=== PATIENT | female | born 1965 | race Caucasian/White ===

== ENCOUNTER 2016-12-17 12:45 | Emergency (ER) | payer OTHER ==
[~2016-12-17] VITALS: Ht 157.5 cm; Wt 79.2 kg
[2016-12-17 12:50] VITALS: BP 133/81; PULSE 89; RESP 16; TEMP 99; O2SAT 98
[2016-12-17 14:40] VITALS: BP 137/74; PULSE 67; RESP 16; O2SAT 98
[2016-12-17 15:43] VITALS: BP 134/76; PULSE 76; RESP 16; TEMP 98.1; O2SAT 99
--- NOTE | 2016-12-17 15:45 | PD ---
HPI Chief Complaint: Headache Time Seen by Provider: 14:36 Travel History International Travel<30 days: No Contact w/Intl Traveler<30days: No Traveled to known affect area: No History of Present Illness HPI The patient was seen and examined in the presence of the nurse. At no point in time was I and the room without the nurse present. This patient comes in with a host of complaints. She was here a month ago when she had a dog bite to the right wrist. She received tetanus and rabies injections. She has discomfort in that right wrist which radiates up her arm toward the right shoulder and neck. Denies muscle weakness or sensory loss. Did not have head or neck injury. She also complains of having some muscle cramping in her thighs. She complains of having some bright red blood in her stool. She does not have a primary care physician. Symptoms severity is moderate. She admits to feeling anxious about a lot of things including these symptoms. Duration of symptoms is one month. No alleviating factors PFSH Past Medical History Cardiovascular Problems: Yes (htn takes no meds) Diminished Hearing: No Influenza Vaccination: No ?: Not LMP: MENOPAUSAL Menopausal: Yes Tubal Ligation: Yes Social History Alcohol Use: Yes (SOCIALLY) Tobacco Use: No Substance Use: No Allergies-Medications (Allergen,Severity, Reaction): Coded Allergies: No Known Allergies (Unverified , 12/17/16) Reported Meds & Prescriptions Reported Meds & Active Scripts Active No Active Prescriptions or Reported Medications Review of Systems General / Constitutional: No: Fever Eyes: No: Visual changes HENT: Positive: Neck Pain, No: Headaches Cardiovascular: No: Chest Pain or Discomfort Respiratory: No: Shortness of Breath Gastrointestinal: Positive: Hematochezia, No: Abdominal Pain Genitourinary: No: Dysuria Musculoskeletal: Positive: Myalgias, Arthralgias, Limited ROM, Cramping, Pain Skin: No Rash Neurologic: No: Weakness Psychiatric: Positive: Anxiety, No: Depression Endocrine: No: Polydipsia Hematologic/Lymphatic: No: Easy Bruising Physical Exam Narrative GENERAL: Well-nourished, well-developed patient in no apparent distress. SKIN: Warm and dry. HEAD: Atraumatic. Normocephalic. EYES: Pupils equal and round. No scleral icterus. No injection or drainage. ENT: No nasal bleeding or discharge. Mucous membranes pink and moist. NECK: Trachea midline. No JVD. Supple with full range of motion. No meningeal signs. CARDIOVASCULAR: Regular rate and rhythm. No murmur appreciated. RESPIRATORY: No accessory muscle use. Clear to auscultation. Breath sounds equal bilaterally. GASTROINTESTINAL: Abdomen soft, non-tender, nondistended. Hepatic and splenic margins not palpable. MUSCULOSKELETAL: No obvious deformities. No clubbing. No cyanosis. No edema. Right wrist exam shows no swelling or bruising. No tenseness of muscle forearm compartments. Neurovascularly intact right arm. NEUROLOGICAL: Awake and alert. No obvious cranial nerve deficits. Motor grossly within normal limits. Normal speech. PSYCHIATRIC: Appropriate mood and affect; insight and judgment normal. Data Data Last Documented VS Vital Signs Date Time Temp Pulse Resp B/P Pulse Ox O2 Delivery O2 Flow Rate FiO2 12/17/16 14:40 67 16 137/74 98 Room Air 12/17/16 12:50 99.0 Orders Complete Blood Count With Diff (12/17/16 15:36) MDM Medical Decision Making Medical Screen Exam Complete: Yes Emergency Medical Condition: Yes Medical Record Reviewed: Yes Differential Diagnosis Myalgias, flu syndrome, internal hemorrhoid, polyp, anxiety, somatoform disorder Narrative Course I have reviewed the patient's electronic medical record. Reviewed her visit from a month ago when she was seen here for dog bite to the right wrist Patient seems very stable. There are no objective findings on exam and she has normal vital signs. She is several vague and seemingly unrelated complaints. I don't think they've anything to do with her dog bite. Think the next best place for her as a primary care physician evaluation can do a head to toe exam and discuss a lot of these issues with her. I don't feel she required extensive emergency room workup. I had our principal product manager discuss with her and give her tip says to how to obtain follow-up. Even though she had never mentioned lab work to me, she apparently was very upset that she did not get any lab studies done. I ordered a CBC to objectively rule out critical anemia Also recommending GI follow-up to discuss colonoscopy I don't feel this emergently needs to be done in the hospital. I offered her pain medication but she declines Diagnosis Primary Impression: Right upper limb pain Additional Impressions: Rectal bleeding Anxiety Additional Instructions: Follow-up with primary care physician Follow-up with GI physician and discuss your rectal bleeding Med/Other Pt SpecificInfo: Other Scripts No Active Prescriptions or Reported Meds Disposition: 01 DISCHARGE HOME Condition: Stable Herman Winchester MD Dec 17, 2016 15:45
[2016-12-17 15:49] LABS: AUTOMATED NEUTROPHIL # 4.8 TH/MM3 (1.8-7.7); BASOPHIL # 0.1 TH/MM3 (0-0.2); BASOPHIL % 0.9 % (0.0-2.0); EOSINOPHIL # 0.2 TH/MM3 (0-0.4); EOSINOPHIL % 2.7 % (0.0-4.0); HEMO FLAGS DIFF FINAL; LYMPH % 24.3 % (9.0-44.0); LYMPHOCYTE # 1.8 TH/MM3 (1.0-4.8); MEAN CELL VOLUME 85.1 FL (80.0-100.0); MEAN CORPUSCULAR HEMOGLOBIN 29.5 PG (27.0-34.0); MEAN CORPUSCULAR HGB CONC 34.7 % (32.0-36.0); MONO % 7.2 % (0.0-8.0); NEUT % 64.9 % (16.0-70.0); PLATELET COUNT 262 TH/MM3 (150-450); RED BLOOD COUNT 4.59 MIL/MM3 (4.00-5.30); RED CELL DISTRIBUTION WIDTH 10.6 % (11.6-17.2); WHITE BLOOD COUNT 7.4 TH/MM3 (4.0-11.0)
== END 2016-12-17 16:17 | disposition home or self-care (01) ==
LOC: PHED 12:45
DX: M79.601 Pain in right arm (principal); K62.5 Hemorrhage of anus and rectum; F41.9 Anxiety disorder, unspecified
CPT/HCPCS: 85025; 99284

== ENCOUNTER 2017-06-17 18:28 | Emergency (ER) | payer SELFPAY ==
[~2017-06-17] VITALS: Ht 157.5 cm; Wt 83.2 kg
[2017-06-17 18:32] VITALS: BP 143/77; PULSE 76; RESP 16; TEMP 98.2; O2SAT 97
--- NOTE | 2017-06-17 18:42 | PD ---
HPI Chief Complaint: GI Complaint Time Seen by Provider: 18:39 Travel History International Travel<30 days: No Contact w/Intl Traveler<30days: No Traveled to known affect area: No History of Present Illness HPI 51-year-old female with history of no significant past medical issues, presents to the ER today with 1 week history of nausea, intermittent vomiting, diarrhea, and right lower quadrant abdominal pains which she currently rates it a 9 out of 10. She states is getting worse over the past 6 days. She denies any urinary symptoms, vaginal discharge, or other issues. Modifying Factors: None Associated Signs & Symptoms: Nausea, vomiting, diarrhea, right lower quadrant abdominal pain Risk Factors: None PFSH Past Medical History Cardiovascular Problems: Yes (htn takes no meds) Diminished Hearing: No ?: Not Menopausal: Yes Tubal Ligation: Yes Social History Alcohol Use: Yes (SOCIALLY) Tobacco Use: No Substance Use: No Allergies-Medications (Allergen,Severity, Reaction): Coded Allergies: No Known Allergies (Unverified , 06/17/17) Reported Meds & Prescriptions Reported Meds & Active Scripts Active No Active Prescriptions or Reported Medications Review of Systems Except as stated in HPI: all other systems reviewed are Neg Physical Exam Narrative GENERAL: Well-developed middle age white female patient currently mild distress at awake and oriented 3. SKIN: Focused skin assessment warm/dry. HEAD: Atraumatic. Normocephalic. EYES: Pupils equal and round. No scleral icterus. No injection or drainage. ENT: No nasal bleeding or discharge. Mucous membranes pink and moist. NECK: Trachea midline. No JVD. CARDIOVASCULAR: Regular rate and rhythm. No murmur appreciated. RESPIRATORY: No accessory muscle use. Clear to auscultation. Breath sounds equal bilaterally. GASTROINTESTINAL: Abdomen soft, right lower quadrant tenderness without guarding or rebound, nondistended. Hepatic and splenic margins not palpable. MUSCULOSKELETAL: No obvious deformities. No clubbing. No cyanosis. No edema. NEUROLOGICAL: Awake and alert. No obvious cranial nerve deficits. Motor grossly within normal limits. Normal speech. PSYCHIATRIC: Appropriate mood and affect; insight and judgment normal. Data Data Last Documented VS Vital Signs Date Time Temp Pulse Resp B/P Pulse Ox O2 Delivery O2 Flow Rate FiO2 06/17/17 18:50 98 Room Air 06/17/17 18:32 98.2 76 16 143/77 Orders Complete Blood Count With Diff (06/17/17 18:35) Comprehensive Metabolic Panel (06/17/17 18:35) Lipase (06/17/17 18:35) Urinalysis - C+S If Indicated (06/17/17 18:35) Iv Access Insert/Monitor (06/17/17 18:35) Ecg Monitoring (06/17/17 18:35) Oximetry (06/17/17 18:35) Sodium Chloride 0.9% Flush (Ns Flush) (06/17/17 18:45) Sodium Chlor 0.9% 1000 Ml Inj (Ns 1000 M (06/17/17 18:45) Hydromorphone Pf Inj (Dilaudid Pf Inj) (06/17/17 18:45) Ondansetron Inj (Zofran Inj) (06/17/17 18:45) Ct Abd/Pel W Iv Contrast(Rout) (06/17/17 18:39) Labs Laboratory Tests Test 06/17/17 18:50 White Blood Count 8.0 TH/MM3 Red Blood Count 4.38 MIL/MM3 Hemoglobin 13.3 GM/DL Hematocrit 37.9 % Mean Corpuscular Volume 86.6 FL Mean Corpuscular Hemoglobin 30.3 PG Mean Corpuscular Hemoglobin 35.0 % Concent Red Cell Distribution Width 12.1 % Platelet Count 164 TH/MM3 Mean Platelet Volume 10.5 FL Neutrophils (%) (Auto) 60.7 % Lymphocytes (%) (Auto) 29.6 % Monocytes (%) (Auto) 6.7 % Eosinophils (%) (Auto) 2.3 % Basophils (%) (Auto) 0.7 % Neutrophils # (Auto) 4.8 TH/MM3 Lymphocytes # (Auto) 2.4 TH/MM3 Monocytes # (Auto) 0.5 TH/MM3 Eosinophils # (Auto) 0.2 TH/MM3 Basophils # (Auto) 0.1 TH/MM3 CBC Comment DIFF FINAL Differential Comment MDM Medical Decision Making Medical Screen Exam Complete: Yes Emergency Medical Condition: Yes Medical Record Reviewed: Yes Differential Diagnosis Right lower quadrant abdominal pain with nausea, vomiting, diarrhea gastroenteritis versus diverticulitis versus renal colic versus pyelonephritis versus appendicitis versus other acute abdominal processes Narrative Course Lab work, IV fluids, pain medications and Zofran were given in the ER. CAT scan was ordered for further evaluation of pain. Physician Communication Physician Communication Case is signed out to Dr. Rojas at 7 PM pending workup. Disposition based on workup. Diagnosis Primary Impression: Abdominal pain Scripts No Active Prescriptions or Reported Meds Condition: Stable Gabino Salazar MD Jun 17, 2017 18:42
[2017-06-17] MEDS ORDERED: SODIUM CHLOR 0.9% 1000 ML INJ 1,000 ML IV ONE (18:45)
[2017-06-17] MEDS ORDERED: ONDANSETRON HCL 4 MG/2 ML VIAL IV PUSH ONE (18:45)
[2017-06-17] MEDS ORDERED: HYDROmorphone HCL PF 1 MG/ML VIAL IV PUSH ONE (18:45)
[2017-06-17 18:50] VITALS: O2SAT 98
[2017-06-17 18:55] LABS: BLOOD, URINE NEG (NEG); GLUCOSE,URINE NEG (NEG); KETONE, URINE NEG (NEG); NITRITE,URINE NEG (NEG)
[2017-06-17 18:56] LABS: AUTOMATED NEUTROPHIL # 4.8 TH/MM3 (1.8-7.7); BASOPHIL # 0.1 TH/MM3 (0-0.2); BASOPHIL % 0.7 % (0.0-2.0); EOSINOPHIL # 0.2 TH/MM3 (0-0.4); EOSINOPHIL % 2.3 % (0.0-4.0); HEMATOCRIT 37.9 % (35.0-46.0); HEMO FLAGS DIFF FINAL; LYMPH % 29.6 % (9.0-44.0); LYMPHOCYTE # 2.4 TH/MM3 (1.0-4.8); MEAN CELL VOLUME 86.6 FL (80.0-100.0); MEAN CORPUSCULAR HEMOGLOBIN 30.3 PG (27.0-34.0); MONO % 6.7 % (0.0-8.0); NEUT % 60.7 % (16.0-70.0); PLATELET COUNT 164 TH/MM3 (150-450); RED BLOOD COUNT 4.38 MIL/MM3 (4.00-5.30); RED CELL DISTRIBUTION WIDTH 12.1 % (11.6-17.2)
[2017-06-17 19:02] LABS: URINE COLOR YELLOW (YELLW/STRAW)
[2017-06-17 19:04] LABS: CHLORIDE 108 MEQ/L (98-107); POTASSIUM 3.9 MEQ/L (3.5-5.1); RBC, URINE 0-2 /hpf (0-3); SODIUM (NA) 143 MEQ/L (136-145); SQUAMOUS EPITHELIAL CELL URINE > 8 /hpf (0-5); WBC, URINE 0-2 /hpf (0-5)
[2017-06-17 19:05] LABS: COMMENT (UR) CULT NOT INDICATED; CULTURE IF INDICATED CULT NOT INDICATED
[2017-06-17 19:08] LABS: ANION GAP 8 MEQ/L (5-15); BICARBONATE 26.9 MEQ/L (21.0-32.0); BLOOD UREA NITROGEN 24 MG/DL (7-18)
[2017-06-17 19:10] LABS: ALT (GPT) 133 U/L (10-53); AST (GOT) 67 U/L (15-37)
[2017-06-17 19:11] LABS: GLOMERULAR FILTRATION RATE 65 ML/MIN (>89)
[2017-06-17 19:12] LABS: TOTAL BILIRUBIN ADULT 0.4 MG/DL (0.2-1.0)
[2017-06-17] MEDS: SODIUM CHLORIDE 0.9% FLUSH 10 ML FLUSH IV FLUSH PRN ×2 (19:12→20:47)
[2017-06-17 19:13] LABS: ALKALINE PHOSPHATASE 97 U/L (45-117)
[2017-06-17 19:15] VITALS: BP 138/67; PULSE 73; RESP 18; TEMP 98.3; O2SAT 96
[2017-06-17] MEDS ORDERED: IOHEXOL 350 MG/ML 10 ML VIAL (for RAD DIAG) IV ONE (19:27)
--- NOTE | 2017-06-17 19:41 | RADRPT ---
EXAM DATE/TIME: 06/17/2017 19:15 [facility] COMPARISON: No previous studies available for comparison. INDICATIONS : Right lower quadrant pain. IV CONTRAST: 100 cc Omnipaque 350 (iohexol) IV ORAL CONTRAST: No oral contrast ingested. RADIATION DOSE: 19.05 CTDIvol (mGy) MEDICAL HISTORY : Hypertension. SURGICAL HISTORY : Tubal ligation. ENCOUNTER: Initial ACUITY: 1 week PAIN SCALE: 8/10 LOCATION: Right lower quadrant abdomen TECHNIQUE: Volumetric scanning of the abdomen and pelvis was performed. Using automated exposure control and ad justment of the mA and/or kV according to patient size, radiation dose was kept as low as reasonably achievable to obtain optimal diagnostic quality images. DICOM format image data is available electro nically for review and comparison. FINDINGS: There is diffuse decreased density of the liver consistent with hepatic steatosis. Gallbladder, splee n, pancreas, adrenal glands, kidneys, stomach unremarkable a tiny fat containing umbilical hernia. Ur inary bladder, uterus and ovaries unremarkable. No free fluid or free air. The appendix is normal. Th ere is no adenopathy. No aneurysm. Lung bases are clear. Osseous structures antrum levoscoliosis. CONCLUSION: 1. Hepatic steatosis. 2. Tiny fat containing umbilical hernia. 3. The appendix is normal. Walter Kennedy MD on June 17, 2017 at 19:38 Board Certified Radiologist. This report was verified electronically.
--- NOTE | 2017-06-17 20:21 | PD ---
Physical Exam Date Seen by Provider: Jun 17, 2017 Time Seen by Provider: 19:05 Narrative Accepted in transfer of care from Dr. Salazar GENERAL: Well-developed well-nourished female in no acute distress no respiratory distress GASTROINTESTINAL: Abdomen soft, mild right-sided lower quadrant abdominal tenderness without guarding or rebound otherwise abdomen bilateral upper quadrants left lower quadrant and periumbilical region nontender to palpation, no induration no erythema no increased warmth no palpable mass, nondistended. Data Data Last Documented VS Vital Signs Date Time Temp Pulse Resp B/P Pulse Ox O2 Delivery O2 Flow Rate FiO2 06/17/17 19:36 18 06/17/17 19:15 98.3 73 138/67 96 Room Air Orders Complete Blood Count With Diff (06/17/17 18:35) Comprehensive Metabolic Panel (06/17/17 18:35) Lipase (06/17/17 18:35) Urinalysis - C+S If Indicated (06/17/17 18:35) Iv Access Insert/Monitor (06/17/17 18:35) Ecg Monitoring (06/17/17 18:35) Oximetry (06/17/17 18:35) Sodium Chloride 0.9% Flush (Ns Flush) (06/17/17 18:45) Sodium Chlor 0.9% 1000 Ml Inj (Ns 1000 M (06/17/17 18:45) Hydromorphone Pf Inj (Dilaudid Pf Inj) (06/17/17 18:45) Ondansetron Inj (Zofran Inj) (06/17/17 18:45) Ct Abd/Pel W Iv Contrast(Rout) (06/17/17 18:39) Iohexol 350 Inj (Omnipaque 350 Inj) (06/17/17 19:27) Labs Laboratory Tests Test 06/17/17 18:50 White Blood Count 8.0 TH/MM3 Red Blood Count 4.38 MIL/MM3 Hemoglobin 13.3 GM/DL Hematocrit 37.9 % Mean Corpuscular Volume 86.6 FL Mean Corpuscular Hemoglobin 30.3 PG Mean Corpuscular Hemoglobin 35.0 % Concent Red Cell Distribution Width 12.1 % Platelet Count 164 TH/MM3 Mean Platelet Volume 10.5 FL Neutrophils (%) (Auto) 60.7 % Lymphocytes (%) (Auto) 29.6 % Monocytes (%) (Auto) 6.7 % Eosinophils (%) (Auto) 2.3 % Basophils (%) (Auto) 0.7 % Neutrophils # (Auto) 4.8 TH/MM3 Lymphocytes # (Auto) 2.4 TH/MM3 Monocytes # (Auto) 0.5 TH/MM3 Eosinophils # (Auto) 0.2 TH/MM3 Basophils # (Auto) 0.1 TH/MM3 CBC Comment DIFF FINAL Differential Comment Urine Color YELLOW Urine Turbidity CLOUDY Urine pH 7.0 Urine Specific [place] 1.030 Urine Protein NEG mg/dL Urine Glucose (UA) NEG mg/dL Urine Ketones NEG mg/dL Urine Occult Blood NEG Urine Nitrite NEG Urine Bilirubin NEG Urine Leukocyte Esterase NEG Urine RBC 0-2 /hpf Urine WBC 0-2 /hpf Urine Squamous Epithelial > 8 /hpf Cells Urine Amorphous Sediment LARGE Urine Bacteria NONE /hpf Microscopic Urinalysis Comment CULT NOT INDICATED Sodium Level 143 MEQ/L Potassium Level 3.9 MEQ/L Chloride Level 108 MEQ/L Carbon Dioxide Level 26.9 MEQ/L Anion Gap 8 MEQ/L Blood Urea Nitrogen 24 MG/DL Creatinine 0.91 MG/DL Estimat Glomerular Filtration 65 ML/MIN Rate Random Glucose 115 MG/DL Calcium Level 8.7 MG/DL Total Bilirubin 0.4 MG/DL Aspartate Amino Transf 67 U/L (AST/SGOT) Alanine Aminotransferase 133 U/L (ALT/SGPT) Alkaline Phosphatase 97 U/L Total Protein 7.3 GM/DL Albumin 4.0 GM/DL Lipase 176 U/L [facility] Medical Record Reviewed: Yes Supervised Visit with PAWAN: No Interpretation(s) Urinalysis: Values grossly normal range CBC is automated differential values in normal range Completed about panel remarkable for mild elevation of BUN 24 as well as mild elevation of transaminases with AST of 67 and ALT of 133 otherwise LFTs and lipase values are found to be in normal range CT abd/'pelvis w/ iv contrast: FINDINGS: There is diffuse decreased density of the liver consistent with hepatic steatosis. Gallbladder, spleen, pancreas, adrenal glands, kidneys, stomach unremarkable a tiny fat containing umbilical hernia. Urinary bladder, uterus and ovaries unremarkable. No free fluid or free air. The appendix is normal. There is no adenopathy. No aneurysm. Lung bases are clear. Osseous structures antrum levoscoliosis. CONCLUSION: 1. Hepatic steatosis. 2. Tiny fat containing umbilical hernia. 3. The appendix is normal. Walter Kennedy MD on June 17, 2017 at 19:38 Board Certified Radiologist. This report was verified electronically. Differential Diagnosis Accepted in transfer of care from Dr. Salazar; please refer to her dictation Narrative Course Accepted in transfer of care from Dr. Salazar; for follow-up of pending labs CT and patient disposition Lab values found to be in normal range except for nonspecific mild elevation of BUN of 20 for resulting in mild decrease of her GFR also mild elevation of transaminases AST of 67 and ALT of 133 however total bilirubin alkaline phosphatase values are normal range lipase is normal range and urinalysis is also grossly within normal range with a normal total white cell count hemoglobin hematocrit platelet count and automated differential. CT abdomen and pelvis resulted and reading identifies no acute abnormality other than mild hepatic steatosis and a tiny fat containing umbilical hernia no evidence for acute intra-abdominal or pelvic process no obstruction. Patient is nontender on previous exam the periumbilical region. Patient informed of imaging results and reexamined, with isolated tenderness to the right lower quadrant just anterior to the anterior spine of the iliac crest without palpable mass redness , induration or fluctuance. Patient informed of imaging results including hepatic steatosis mildly elevated transaminases keep her close follow-up with primary care provider and given resources in the community for outpatient follow-up. Due to abdominal wall tenderness patient will be given prescription for muscle relaxants to take as needed as prescribed. Patient is encouraged to return to the emergency department for any concerns or change in condition. Patient also encouraged to follow clear liquid diet for next 12-24 hrs. advance as tolerated to bland/Danika diet and regular diet as tolerated for gastroenteritis type symptoms. Diagnosis Primary Impression: Abdominal pain Qualified Code: R10.31 - Right lower quadrant abdominal pain Additional Impressions: Gastroenteritis Abdominal wall pain in right lower quadrant Hepatic steatosis Referrals: [facility] call for appointment Patient Instructions: General Instructions Additional Instruction: Follow clear liquid diet for next 12-24 hours advance as tolerated to bland/ Danika diet then regular diet Follow-up with primary care provider Take medication as prescribed as needed for muscle spasm Take medication as prescribed as needed for nausea and/or vomiting Monitor temperature for fever take acetaminophen/Tylenol as needed for fever 100.4F or greater Increase fluid hydration May take weight-based ibuprofen/Motrin/Advil 600 mg as often as every 6 hours or up to 800 mg as often as every 8 hours avoid high-dose ibuprofen for greater than 2-3 days; do not take any aspirin-like products while taking ibuprofen or other NSAID such as Aleve/Naprosyn/naproxen. Med/Other Pt SpecificInfo: Prescription(s) given Scripts Ondansetron Odt (Zofran Odt)4 Mg Tab4 Mg SL Q6HR PRN (Nausea/Vomiting) #10 TAB Ref 0 Prov:Lashanda Rojas MD 06/17/17 Methocarbamol (Robaxin)750 Mg Syq588 Mg PO Q6HR #7 TAB Ref 0 Prov:Lashanda Rojas MD 06/17/17 Disposition: 01 DISCHARGE HOME Condition: Stable Lashanda Rojas MD Jun 17, 2017 20:21
[2017-06-17] MEDS ORDERED: ROBA750T PO (20:33)
[2017-06-17] MEDS ORDERED: ZOFR4TAB3 SL (20:34)
[2017-06-17] MEDS ORDERED: KETOROLAC TROMETHAMINE 30 MG/ML (IVP) VIAL IV PUSH ONE (20:45)
[2017-06-17 20:59] VITALS: BP 154/76; PULSE 67; RESP 18; O2SAT 98
== END 2017-06-17 21:03 | disposition home or self-care (01) ==
LOC: PHED 18:28
DX: R10.31 Right lower quadrant pain (principal); K76.0 Fatty (change of) liver, not elsewhere classified; K52.9 Noninfective gastroenteritis and colitis, unspecified
CPT/HCPCS: 74177; 80053; 81001; 83690; 85025; 96361; 96374; 96375; 99285; J1170; J1885; J2405; J7030; Q9967

== ENCOUNTER 2017-08-26 12:24 | Emergency (ER) | payer SELFPAY ==
[~2017-08-26 12:24] MED LIST: ROBA750T PO; ZOFR4TAB3 SL
[2017-08-26 12:27] VITALS: BP 178/102; PULSE 108; RESP 26; TEMP 98.8; O2SAT 93
[2017-08-26] MEDS ORDERED: ACETAMINOPHEN/HYDROcodone 325 MG/5 MG TAB PO ONE (13:00)
[2017-08-26] MEDS ORDERED: CEPHALEXIN MONOHYDRATE 500 MG CAP PO ONE (13:00)
--- NOTE | 2017-08-26 13:37 | PD ---
HPI Chief Complaint: Laceration/Skin Injury Time Seen by Provider: 12:48 Travel History International Travel<30 days: No Contact w/Intl Traveler<30days: No Traveled to known affect area: No History of Present Illness HPI 51-year-old female came to the emergency room with history of right leg injury from a heavy glass table top that shattered. Patient says that she was trying to unload the truck of her stuff to put it in the storage. The glass top table which she thought was secure came forward and as it was falling the top of it caught on the diaz shaft of the van. It broke and as it was falling at shattered and a piece of it hit her leg. Instantly there was bleeding and sharp pain. Patient says that it bled some. She tried to put some Tylenol around it and drove herself here. When she was driving she realized that she was having trouble dorsiflexing the foot. It felt weaker and there was pain as well. She is otherwise a relatively healthy person. No blood thinners on board. She had a tetanus shot last less than a year ago. Vital signs were stable. She is anxious. When the nurses were initially trying to look at the wound she felt hot and diaphoretic. PFSH Past Medical History Narrative Medical List of her past medical, surgical, social and family history is reviewed from the nursing note. Cardiovascular Problems: Yes (htn takes no meds) Diminished Hearing: No ?: Not Menopausal: Yes Tubal Ligation: Yes Social History Alcohol Use: Yes (Occ.) Tobacco Use: No Substance Use: No Allergies-Medications (Allergen,Severity, Reaction): Coded Allergies: No Known Allergies (Unverified , 08/31/17) Comments No known drug allergies. Reported Meds & Prescriptions Reported Meds & Active Scripts Active Hydrocodone-Acetaminophen 5-325 mg Tab 1 Tab PO Q6H PRN Keflex (Cephalexin) 500 Mg Cap 500 Mg PO Q8H List Narrative Medication List of her home medication reviewed from the nursing note. Review of Systems Except as stated in HPI: all other systems reviewed are Neg Physical Exam Narrative GENERAL: Awake, alert, moderate distress, anxious SKIN: Focused skin assessment warm/dry. Patient has a 7 cm laceration on the anterior aspect of her right leg 5 cm proximal to the ankle. It is a V-shaped flap wound. There is a large clot underneath the flap and no active bleeding is noticed currently. No bony deformity. HEAD: Atraumatic. Normocephalic. EYES: Pupils equal and round. No scleral icterus. No injection or drainage. ENT: No nasal bleeding or discharge. Mucous membranes pink and moist. NECK: Trachea midline. No JVD. CARDIOVASCULAR: Regular rate and rhythm. No murmur appreciated. RESPIRATORY: No accessory muscle use. Clear to auscultation. Breath sounds equal bilaterally. GASTROINTESTINAL: Abdomen soft, non-tender, nondistended. Hepatic and splenic margins not palpable. MUSCULOSKELETAL: No obvious deformities. No clubbing. No cyanosis. No edema. Absent dorsi flexion of her right foot. Minimal dorsi flexion of the great toe and the rest of the toes. Numbness of her dorsum of the foot and the toes. Distal pulses present NEUROLOGICAL: Awake and alert. No obvious cranial nerve deficits. Motor grossly within normal limits. Normal speech. PSYCHIATRIC: Appropriate mood and affect; insight and judgment normal. Data Data Last Documented VS Orders Orders Tibia/Fibula (Ap/Lat) (08/26/17 ) Cephalexin (Keflex) (08/26/17 13:00) Acetamin-Hydrocod 325-5 Mg ([place] 5-325 (08/26/17 13:00) Lidocaine 2% Inj (Xylocaine 2% Inj) (08/26/17 13:45) Support Splint (08/26/17 15:08) Crutches (08/26/17 15:08) Fiberglass Short Leg Splint Ad (08/26/17 ) MDM Medical Decision Making Medical Screen Exam Complete: Yes Emergency Medical Condition: Yes Medical Record Reviewed: Yes Differential Diagnosis Foreign body retention, tendon laceration, muscle laceration, fracture of the tibia Narrative Course 2:52 PM after the wound was explored I loosely sutured the skin edges. Please refer to my procedure note. Obviously my concern at this point was the tendon laceration. I discussed the case with Dr. Obrien who is on-call for orthopedic. She wants the patient followed up in her office on Thursday afternoon or at the latest Thursday morning so that a surgery by Thursday can be done. Patient was given a dose of Keflex. X-ray did not show any fracture or radiopaque foreign body. Wound exploration did not yield any foreign body either. She will get a dressing and a posterior splint by the clinical laboratory technician. She'll be discharged home on crutches. I'll give her these instructions strictly so that she can follow-up. She'll be discharged home on antibiotic prescription as well. Procedures Procedure Narrative LACERATION LOCATION: Anterior aspect of the right lower leg LENGTH: 7 cm NUMBER OF STITCHES/[place]: 8 stitches REPAIR: The area of the laceration was prepped with Betadine and sterilely draped. The laceration was infiltrated with 15 mL of 2% lidocaine without epinephrine. The wound was copiously irrigated and explored without evidence of foreign body. However there was 100% tendon injury probably of extensor digitorum longus muscle or anterior tibialis muscle. The wound was closed using 3-0 Ethilon. This was a single layer repair. A sterile dressing was applied. The patient was advised to keep the dressing clean and dry. Patient tolerated the procedure well. EKG Prior to Arrival: No Physician Communication Physician Communication Dr. Obrien Diagnosis Primary Impression: Laceration of leg Qualified Codes: S81.811A - Laceration without foreign body, right lower leg, initial encounter Additional Impression: Tendon laceration Additional Instructions: Please follow-up with Dr. Obrien at the orthopedic clinic [facility] either on Thursday afternoon or Thursday morning by the latest. The call center number to call and make an appointment is [phone]. She wants to take every 4 surgery definitely by Thursday and hence the appointment prior to that is very important. Keep the splint and the wound clean and dry. Use crutches to ambulate. Keep the leg elevated above the heart level to keep the swelling down. The medications as per the prescription direction. You should not be driving. It is important to get the surgery done as per the orthopedist by Thursday so that the tendon functioning again. Med/Other Pt SpecificInfo: Prescription(s) given Scripts Hydrocodone-Acetaminophen (Hydrocodone-Acetaminophen) 5-325 mg Tab 1 TAB PO Q6H Y for PAIN, #12 TAB 0 Refills Prov: Suhas Matt MD 08/26/17 Cephalexin (Keflex) 500 Mg Cap 500 MG PO Q8H for Infection, #30 CAP 0 Refills Prov: Suhas Matt MD 08/26/17 Disposition: 01 DISCHARGE HOME Condition: Stable Suhas Matt MD Aug 26, 2017 13:37
[2017-08-26 13:44] VITALS: BP 135/72; PULSE 88; RESP 20; O2SAT 97
[2017-08-26] MEDS ORDERED: LIDOCAINE HCL 2% 50 ML VIAL NERV BLOCK ONE (13:45)
--- NOTE | 2017-08-26 14:00 | RADRPT ---
EXAM DATE/TIME: 08/26/2017 13:23 [facility] COMPARISON: No previous studies available for comparison. INDICATIONS : Right lower tibia laceration, large piece of glass table top broke and fell on leg. MEDICAL HISTORY : None. SURGICAL HISTORY : None. ENCOUNTER: Initial ACUITY: 1 day PAIN SCORE: 10/10 LOCATION: Right lower tibia FINDINGS: Two view examination of the right tibia demonstrates no evidence of fracture or dislocation. Bony mi neralization is normal. The soft tissue structures are intact. CONCLUSION: Negative for foreign body. Glass can be radiolucent. Pascual Mejia MD FACR on August 26, 2017 at 13:58 Board Certified Radiologist. This report was verified electronically.
[2017-08-26 15:02] VITALS: BP 127/60; PULSE 72; RESP 20; O2SAT 100
[2017-08-26] MEDS ORDERED: CEPH-460 PO (15:03)
[2017-08-26] MEDS ORDERED: HYDR-3516 PO (15:04)
== END 2017-08-26 15:30 | disposition home or self-care (01) ==
LOC: PHED 12:24
DX: S81.811A Laceration without foreign body, right lower leg, initial encounter (principal); W25.XXXA Contact with sharp glass, initial encounter
CPT/HCPCS: 12002; 73590; 99284; E0113

== ENCOUNTER 2017-08-31 18:37 | Inpatient (IN) | payer SELFPAY ==
[~2017-08-31] VITALS: Ht 157.5 cm; Wt 84.4 kg
[~2017-08-31 18:37] MED LIST changes: +CEPH-460 PO; +HYDR-3516 PO; -ROBA750T PO; -ZOFR4TAB3 SL
[2017-08-31 18:47] VITALS: BP 144/69; PULSE 78; RESP 16; TEMP 99.1; O2SAT 98
--- NOTE | 2017-08-31 20:26 | PD ---
HPI Chief Complaint: Wound/Suture/Staple Re-Check Time Seen by Provider: 20:56 Travel History International Travel<30 days: No Contact w/Intl Traveler<30days: No Traveled to known affect area: No History of Present Illness HPI 51-year-old female here for a follow-up of right robledo injury that occurred Thursday. She went to the emergency department and was found to have some tendon involvement and she was made a follow-up appointment with an orthopedic doctor however, she could not go because she could not be seen. She subsequently had a follow-up appointment with a another orthopedic and again could not be seen for treatment. She is asking me today to have a consult in the hospital. She claims that she has felt fever and chills and is nauseous from the pain. She denies shortness of breath, chest pain, flank pain, joint pain. She says the Lortab she was prescribed does not help her with the pain and only makes her itch. She took just 1 pill today. LMP 8 years ago. PFSH Past Medical History Cardiovascular Problems: Yes (htn takes no meds) Diminished Hearing: No Tetanus Vaccination: < 5 Years Influenza Vaccination: No ?: Not Menopausal: Yes Tubal Ligation: Yes Social History Alcohol Use: Yes ("seldom") Tobacco Use: No Substance Use: No Allergies-Medications (Allergen,Severity, Reaction): Coded Allergies: No Known Allergies (Unverified , 08/31/17) Reported Meds & Prescriptions Reported Meds & Active Scripts Active Hydrocodone-Acetaminophen 5-325 mg Tab 1 Tab PO Q6H PRN Keflex (Cephalexin) 500 Mg Cap 500 Mg PO Q8H Review of Systems Except as stated in HPI: all other systems reviewed are Neg Physical Exam Narrative 51-year-old white female presents to the emergency department for a right anterior robledo wound that occurred last Thursday. Today she complains of pain not relieved by Lortab, and inability to dorsiflex or plantar flex her foot. Physical exam revealed laxity ankle joint distal to toes, pulses present, sensory intact. GENERAL: Well-developed well-nourished SKIN: Focused skin assessment warm/dry. Anterior robledo: v-shaped laceration with [address] Minimal bleeding without exudate. HEAD: Atraumatic. Normocephalic. EYES: Pupils equal and round. No scleral icterus. No injection or drainage. ENT: No nasal bleeding or discharge. Mucous membranes pink and moist. NECK: Trachea midline. No JVD. CARDIOVASCULAR: Regular rate and rhythm. No murmur appreciated. RESPIRATORY: No accessory muscle use. Clear to auscultation. Breath sounds equal bilaterally. GASTROINTESTINAL: Abdomen soft, non-tender, nondistended. Hepatic and splenic margins not palpable. MUSCULOSKELETAL: No obvious deformities. No clubbing. No cyanosis. No edema. NEUROLOGICAL: Awake and alert. Motor grossly within normal limits except for the above mentioned. Normal speech. PSYCHIATRIC: Appropriate mood and affect; insight and judgment normal. Data Data Last Documented VS Vital Signs Date Time Temp Pulse Resp B/P (MAP) Pulse Ox O2 Delivery O2 Flow Rate FiO2 09/01/17 00:00 98.6 64 16 106/79 (88) 96 Orders Orders Ondansetron Odt (Zofran Odt) (08/31/17 20:30) Acetamin-Codeine 300-30 Mg (Tylenol-Code (08/31/17 20:30) Complete Blood Count With Diff (08/31/17 20:41) Comprehensive Metabolic Panel (08/31/17 20:41) Prothrombin Time / Inr (Pt) (08/31/17 20:41) Act Partial Throm Time (Ptt) (08/31/17 20:41) Chest, Pa & Lat (08/31/17 ) Ed Urine Pregnancytest Poc (08/31/17 20:41) Electrocardiogram (08/31/17 ) Type And Screen (08/31/17 20:41) NPO (08/31/17 20:46) Mri Lower Leg W/O Contrast (08/31/17 ) Admit To Inpatient (08/31/17 ) Vital Signs (Adult) Q4H (08/31/17 23:46) Activity Bed Rest (08/31/17 23:46) Mushroom Cutter / Telemetry .CONTINUOUS (08/31/17 23:46) Diet Npo (09/01/17 Breakfast) Sodium Chloride 0.9% Flush (Ns Flush) (09/01/17 00:00) Sodium Chloride 0.9% Flush (Ns Flush) (09/01/17 09:00) Basic Metabolic Panel (Bmp) (09/01/17 06:00) Complete Blood Count With Diff (09/01/17 06:00) Case Management Consult (08/31/17 23:46) Naloxone Inj (Narcan Inj) (09/01/17 00:00) Inpatient Certification (08/31/17 ) Consult Orthopedic (08/31/17 ) Morphine Inj (Morphine Inj) (09/01/17 00:00) Admit Order (Ed Use Only) (08/31/17 ) Labs Laboratory Tests Test 08/31/17 22:35 White Blood Count 6.7 TH/MM3 Red Blood Count 4.44 MIL/MM3 Hemoglobin 13.2 GM/DL Hematocrit 39.1 % Mean Corpuscular Volume 87.9 FL Mean Corpuscular Hemoglobin 29.8 PG Mean Corpuscular Hemoglobin Concent 33.9 % Red Cell Distribution Width 11.9 % Platelet Count 198 TH/MM3 Mean Platelet Volume 8.9 FL Neutrophils (%) (Auto) 54.4 % Lymphocytes (%) (Auto) 35.0 % Monocytes (%) (Auto) 7.9 % Eosinophils (%) (Auto) 2.0 % Basophils (%) (Auto) 0.7 % Neutrophils # (Auto) 3.8 TH/MM3 Lymphocytes # (Auto) 2.3 TH/MM3 Monocytes # (Auto) 0.5 TH/MM3 Eosinophils # (Auto) 0.1 TH/MM3 Basophils # (Auto) 0.0 TH/MM3 CBC Comment DIFF FINAL Differential Comment Prothrombin Time 10.0 SEC Prothromb Time International Ratio 0.9 RATIO Activated Partial Thromboplast Time 26.7 SEC Blood Urea Nitrogen 20 MG/DL Creatinine 0.70 MG/DL Random Glucose 109 MG/DL Total Protein 7.5 GM/DL Albumin 4.3 GM/DL Calcium Level 9.3 MG/DL Alkaline Phosphatase 64 U/L Aspartate Amino Transf (AST/SGOT) 57 U/L Alanine Aminotransferase (ALT/SGPT) 141 U/L Total Bilirubin 0.5 MG/DL Sodium Level 137 MEQ/L Potassium Level 3.8 MEQ/L Chloride Level 101 MEQ/L Carbon Dioxide Level 29.9 MEQ/L Anion Gap 6 MEQ/L Estimat Glomerular Filtration Rate 88 ML/MIN MDM Medical Decision Making Medical Screen Exam Complete: Yes Emergency Medical Condition: Yes Differential Diagnosis Right anterior robledo: Tendon laceration versus cellulitis versus muscle laceration Narrative Course 51-year-old white female presents to the emergency department for a right anterior robledo wound that occurred last Thursday. She was advised to follow-up with orthopedics however she was unable to follow-up. Today she complains of pain not relieved by Lortab, and inability to dorsiflex or plantar flex her foot. Physical exam revealed laxity in her ankle joint, pulses present, sensory intact. I consulted with my attending and he agreed with the plan. To order labs, chest x-ray and urine has a preop. We'll obtain the results from these tests then admit to medicine. I spoke with Rafael PEREZ for Dr. Miguel and he advised me that patient is due to follow up with Dr. Zaragoza tomorrow at 1045 also Jayce. He told me that Dr. Obrien suggested pain control as needed. However, when I spoke with the patient, she told me that the office cancelled her appointment tomorrow. I consulted with my attending and he agreed with ordering an MRI to assess for tendon involvement. CXR with possible nodule. Pt advised to follow this up in outpatient setting. MRI pending. Signing out to Dr. Leavitt for continuation of care. Admitting Information Admitting Physician Requests: Admit Condition: Stable Araceli Kelsey Aug 31, 2017 20:26
[2017-08-31] MEDS ORDERED: ONDANSETRON ODT 4 MG TAB PO ONE (20:30)
[2017-08-31] MEDS ORDERED: ACETAMINOPHEN/CODEINE 300 MG/30 MG TAB PO ONE (20:30)
--- NOTE | 2017-08-31 21:42 | PD ---
Data Data Last Documented VS Vital Signs Date Time Temp Pulse Resp B/P (MAP) Pulse Ox O2 Delivery O2 Flow Rate FiO2 08/31/17 18:47 99.1 78 16 144/69 (94) 98 Orders Orders Ondansetron Odt (Zofran Odt) (08/31/17 20:30) Acetamin-Codeine 300-30 Mg (Tylenol-Code (08/31/17 20:30) Complete Blood Count With Diff (08/31/17 20:41) Comprehensive Metabolic Panel (08/31/17 20:41) Prothrombin Time / Inr (Pt) (08/31/17 20:41) Act Partial Throm Time (Ptt) (08/31/17 20:41) Chest, Pa & Lat (08/31/17 ) Ed Urine Pregnancytest Poc (08/31/17 20:41) Electrocardiogram (08/31/17 ) Type And Screen (08/31/17 20:41) NPO (08/31/17 20:46) Mri Lower Leg W/O Contrast (08/31/17 ) Admit To Inpatient (08/31/17 ) Vital Signs (Adult) Q4H (08/31/17 23:46) Activity Bed Rest (08/31/17 23:46) Head Strength And Conditioning Coach / Telemetry .CONTINUOUS (08/31/17 23:46) Diet Npo (09/01/17 Breakfast) Sodium Chloride 0.9% Flush (Ns Flush) (09/01/17 00:00) Sodium Chloride 0.9% Flush (Ns Flush) (09/01/17 09:00) Basic Metabolic Panel (Bmp) (09/01/17 06:00) Complete Blood Count With Diff (09/01/17 06:00) Case Management Consult (08/31/17 23:46) Naloxone Inj (Narcan Inj) (09/01/17 00:00) Inpatient Certification (08/31/17 ) Consult Orthopedic (08/31/17 ) Morphine Inj (Morphine Inj) (09/01/17 00:00) Admit Order (Ed Use Only) (08/31/17 ) Labs Laboratory Tests Test 08/31/17 22:35 White Blood Count 6.7 TH/MM3 Red Blood Count 4.44 MIL/MM3 Hemoglobin 13.2 GM/DL Hematocrit 39.1 % Mean Corpuscular Volume 87.9 FL Mean Corpuscular Hemoglobin 29.8 PG Mean Corpuscular Hemoglobin Concent 33.9 % Red Cell Distribution Width 11.9 % Platelet Count 198 TH/MM3 Mean Platelet Volume 8.9 FL Neutrophils (%) (Auto) 54.4 % Lymphocytes (%) (Auto) 35.0 % Monocytes (%) (Auto) 7.9 % Eosinophils (%) (Auto) 2.0 % Basophils (%) (Auto) 0.7 % Neutrophils # (Auto) 3.8 TH/MM3 Lymphocytes # (Auto) 2.3 TH/MM3 Monocytes # (Auto) 0.5 TH/MM3 Eosinophils # (Auto) 0.1 TH/MM3 Basophils # (Auto) 0.0 TH/MM3 CBC Comment DIFF FINAL Differential Comment Prothrombin Time 10.0 SEC Prothromb Time International Ratio 0.9 RATIO Activated Partial Thromboplast Time 26.7 SEC Blood Urea Nitrogen 20 MG/DL Creatinine 0.70 MG/DL Random Glucose 109 MG/DL Total Protein 7.5 GM/DL Albumin 4.3 GM/DL Calcium Level 9.3 MG/DL Alkaline Phosphatase 64 U/L Aspartate Amino Transf (AST/SGOT) 57 U/L Alanine Aminotransferase (ALT/SGPT) 141 U/L Total Bilirubin 0.5 MG/DL Sodium Level 137 MEQ/L Potassium Level 3.8 MEQ/L Chloride Level 101 MEQ/L Carbon Dioxide Level 29.9 MEQ/L Anion Gap 6 MEQ/L Estimat Glomerular Filtration Rate 88 ML/MIN MDM Supervised Visit with PAWAN: Yes Narrative Course I, Dr. Leavitt, have reviewed the advance practice practitioner's documentation and am in agreement, met with the patient face to face, made the diagnosis, and the medical decision making was done by me. *My assessment and Findings: This 51-year-old female presents emergency department for reevaluation of the lacerated tendon. The patient was initially seen by Dr. Matt on 08/26 who documented the patient had a clear tendon laceration. She discussed with orthopedics economic development manager Dr. Obrien who at that time had agreed to see the patient in her office on 08/28 or 08/31 for surgery on 09/01. Patient states that she went to Dr. Rosas office and a staff member was sent out and tell her that she could not see her. She was then referred to Dr. Horn but someone from Dr. Horn's office told her that they cannot see her either. Dr. Matt at that time dictated that there was 100% tendon injury or probably the extensor digitorum longus for the anterior tibialis muscle. Araceli discussed the case with the orthopedic PA on-call for Dr. Miguel reported that she spoke with Dr. Obrien who informed us through the PA that the patient was supposed to follow-up Dr. Horn. Again the patient has told us that Dr. Horn cannot see her either. I did speak with Dr. Matt who confirms that the patient does have 100% tendon laceration. She is concerned for the patient's foot drop and thinks the patient needs operative intervention. On my physical examination patient does indeed have foot drop unable to bear weight secondary to pain, she does have a wound is approximated with sutures in place. I have ordered MRI for preoperative planning, my plan is to admit the patient for orthopedic consultation to maintain her ambulatory status. Diagnosis Primary Impression: Tendon laceration Additional Impression: Foot drop, right Admitting Information Admitting Physician Requests: Admit Condition: Stable Dilip Leavitt MD Aug 31, 2017 21:42
--- NOTE | 2017-08-31 22:06 | RADRPT ---
EXAM DATE/TIME: 08/31/2017 20:49 [facility] COMPARISON: No previous studies available for comparison. INDICATIONS : Evaluate for pneumothorax, pneumonia, and communicable disease. Pre op for right leg surgery. MEDICAL HISTORY : None. SURGICAL HISTORY : None. ENCOUNTER: Initial ACUITY: 1 day PAIN SCORE: 0/10 LOCATION: Bilateral chest FINDINGS: The heart size is normal. There is focal density seen in the left upper chest likely related to the f irst rib on end. A pulmonary nodule cannot be excluded. The lungs are otherwise clear. No effusion is seen. CONCLUSION: No acute abnormality is seen. There is focal density in the left upper chest likely related to the fi rst left rib on end. A nodule cannot be excluded. This area could be further evaluated with a CT exam ination of the chest at some point. Lincoln Curran MD on August 31, 2017 at 22:04 Board Certified Radiologist. This report was verified electronically.
[2017-08-31 22:46] LABS: AUTOMATED NEUTROPHIL # 3.8 TH/MM3 (1.8-7.7); BASOPHIL % 0.7 % (0.0-2.0); EOSINOPHIL # 0.1 TH/MM3 (0-0.4); HEMATOCRIT 39.1 % (35.0-46.0); HEMO FLAGS DIFF FINAL; LYMPHOCYTE # 2.3 TH/MM3 (1.0-4.8); MEAN CELL VOLUME 87.9 FL (80.0-100.0); MEAN CORPUSCULAR HEMOGLOBIN 29.8 PG (27.0-34.0); MEAN CORPUSCULAR HGB CONC 33.9 % (32.0-36.0); MONO % 7.9 % (0.0-8.0); NEUT % 54.4 % (16.0-70.0); PLATELET COUNT 198 TH/MM3 (150-450); RED BLOOD COUNT 4.44 MIL/MM3 (4.00-5.30); RED CELL DISTRIBUTION WIDTH 11.9 % (11.6-17.2); WHITE BLOOD COUNT 6.7 TH/MM3 (4.0-11.0)
[2017-08-31 23:03] LABS: CHLORIDE 101 MEQ/L (98-107); POTASSIUM 3.8 MEQ/L (3.5-5.1); SODIUM (NA) 137 MEQ/L (136-145)
[2017-08-31 23:07] LABS: ANION GAP 6 MEQ/L (5-15); APTT (PATIENT) 26.7 SEC (24.3-30.1); BICARBONATE 29.9 MEQ/L (21.0-32.0); BLOOD UREA NITROGEN 20 MG/DL (7-18); INTERNATIONAL NORMALIZED RATIO 0.9 RATIO
[2017-08-31 23:10] LABS: ALT (GPT) 141 U/L (10-53); AST (GOT) 57 U/L (15-37); GLOMERULAR FILTRATION RATE 88 ML/MIN (>89)
[2017-08-31 23:11] LABS: TOTAL BILIRUBIN ADULT 0.5 MG/DL (0.2-1.0)
[2017-08-31 23:13] LABS: ALKALINE PHOSPHATASE 64 U/L (45-117)
--- NOTE | 2017-08-31 23:58 | RADRPT ---
EXAM DATE/TIME: 08/31/2017 23:14 [facility] COMPARISON: TIBIA/FIBULA RIGHT (AP/LAT), August 26, 2017, 13:23. INDICATIONS : Pain in the middle portion of the anterior lower leg. Patient had glass cut her leg five days ago. MEDICAL HISTORY : Hypertension. SURGICAL HISTORY : Tubal ligation. ENCOUNTER: Subsequent ACUITY: 4-6 days PAIN SCORE: 5/10 LOCATION: Right lower leg. TECHNIQUE: Multiplanar multisequence MRI examination of the lower leg was performed without contrast. FINDINGS: There is subcutaneous predominant soft tissue edema anteriorly of the mid to distal leg. Some of the edema is in the anterior muscle compartment and with evidence of a focal myofascial laceration of tib ialis anterior, series 9 image 28. At the level of the distal myotendinous junction is in approximate ly 50% partial-thickness tendon tear that is approximately 23 mm in length. The muscle laceration is approximately 58 mm in length. No perceptible foreign body. The right tibia and fibula are normal. CONCLUSION: 1. Soft tissue laceration anteriorly in the mid to distal leg as described above. 2. Associated 58 mm long myofascial defect of tibialis anterior and an approximately 50% partial-thic kness tendon tear at the level of the distal myotendinous junction with 23 mm of separation of the to rn fibers. 3. No acute abnormality seen of the right tibia or fibula. Lincoln Mckenzie MD on August 31, 2017 at 23:48 Board Certified Radiologist. This report was verified electronically.
[2017-09-01] VITALS: BP 106/79; PULSE 64; RESP 16; TEMP 98.6; O2SAT 96
[2017-09-01] MEDS: MORPHINE SULFATE 4 MG/ML INJ IV PUSH PRN ×6 (01:24→21:19)
[2017-09-01 04:00] VITALS: BP 137/72; PULSE 66; RESP 18; TEMP 98.4; O2SAT 97
[2017-09-01 06:29] LABS: AUTOMATED NEUTROPHIL # 3.3 TH/MM3 (1.8-7.7); BASOPHIL % 0.7 % (0.0-2.0); EOSINOPHIL # 0.2 TH/MM3 (0-0.4); EOSINOPHIL % 2.4 % (0.0-4.0); HEMATOCRIT 35.9 % (35.0-46.0); HEMO FLAGS DIFF FINAL; LYMPH % 38.2 % (9.0-44.0); LYMPHOCYTE # 2.5 TH/MM3 (1.0-4.8); MEAN CELL VOLUME 88.1 FL (80.0-100.0); MEAN CORPUSCULAR HEMOGLOBIN 30.1 PG (27.0-34.0); MEAN CORPUSCULAR HGB CONC 34.2 % (32.0-36.0); MONO % 9.9 % (0.0-8.0); NEUT % 48.8 % (16.0-70.0); PLATELET COUNT 178 TH/MM3 (150-450); RED BLOOD COUNT 4.07 MIL/MM3 (4.00-5.30); RED CELL DISTRIBUTION WIDTH 11.5 % (11.6-17.2); WHITE BLOOD COUNT 6.7 TH/MM3 (4.0-11.0)
[2017-09-01 06:36] LABS: POTASSIUM 3.7 MEQ/L (3.5-5.1)
[2017-09-01 06:39] LABS: BICARBONATE 29.3 MEQ/L (21.0-32.0)
[2017-09-01 08:00] VITALS: BP 133/65; PULSE 56; RESP 18; TEMP 98.1; O2SAT 99
--- NOTE | 2017-09-01 08:44 | EKG ---
Date Performed: 08/31/2017 Time Performed: 21:12:56 PTAGE: 51 years EKG: Sinus rhythm VOLTAGE CRITERIA FOR LVH NONSPECIFIC T-WAVE ABNORMALITY ABNORMAL ECG NO PREVIOUS TRACING DOCTOR: Cherelle Murcia Interpretating Date/Time 09/01/2017 08:42:13
[2017-09-01] MEDS ORDERED: ceFAZolin 2 GM PREMIX 50 ML IV SCH ×2 (09:00→13:00)
[2017-09-01] MEDS ORDERED: ACETAMINOPHEN/HYDROcodone 325 MG/5 MG TAB PO PRN (09:30)
[2017-09-01] MEDS ORDERED: NALOXONE HCL 0.4 MG/ML AMP IV PUSH PRN ×2 (09:30)
[2017-09-01] MEDS: SODIUM CHLORIDE 0.9% FLUSH 10 ML FLUSH IV FLUSH SCH ×2 (09:37→21:00)
[2017-09-01] MEDS ORDERED: ACETAMINOPHEN 325 MG TAB PO PRN (10:00)
--- NOTE | 2017-09-01 10:31 | HHI.HP ---
[facility] Service [facility] Primary Care Physician No Primary Care Physician Admission Diagnosis Tendon Laceration. Diagnoses: Travel History International Travel<30 Days: No Contact w/Intl Traveler <30 Da: No Traveled to Known Affected Are: No History of Present Illness This is a pleasant 51-year-old female with no significant past medical history who was moving a glass table on August 28 when the glass fell and she suffered a laceration to her right lower extremity. In the emergency department it was felt that she had a tendon laceration as she had foot drop. The wound was closed superficially and she was to follow-up with orthopedic surgery. However when the patient presents to the orthopedic surgeon 's office they were unable to see her as apparently the orthopedic surgeon had not yet been credentialed for [facility]. The patient was rescheduled to be seen today. However she tells me that appointment had been canceled. Because of fears of not having the tendon address the patient presented to the ER last night. MRI in the emergency department showed a 50 mm defect in the tibialis anterior muscle with 50% tear in the distal myotendinous junction with 23 mm separation. The patient continues to have foot drop and pain of the lower extremity. She denies fevers chills. Denies any drainage or bleeding from the site. 10 point review systems otherwise negative. Past Family Social History Past Medical History None Past Surgical History Tubal ligation Reported Medications Allergies Coded Allergies Type Severity Reaction Last Updated Verified No Known Allergies 08/31/17 No Active Scripts Medications Dose Route/Sig Max Daily Dose Days Date Category Hydrocodone-Acetaminophen 5-325 mg Tab 1 Tab PO Q6H PRN 08/26/17 Rx Keflex (Cephalexin) 500 Mg Cap 500 Mg PO Q8H 08/26/17 Rx Allergies: Coded Allergies: No Known Allergies (Unverified , 08/31/17) Social History No history of alcohol tobacco or drug use Physical Exam Vital Signs Vital Signs Date Time Temp Pulse Resp B/P (MAP) Pulse Ox O2 Delivery O2 Flow Rate FiO2 09/01/17 09:58 18 09/01/17 08:00 98.1 56 18 133/65 (87) 99 09/01/17 04:00 98.4 66 18 137/72 (93) 97 09/01/17 00:00 98.6 64 16 106/79 (88) 96 08/31/17 18:47 99.1 78 16 144/69 (94) 98 Physical Exam GENERAL: Well-nourished, well-developed pleasant female patient. SKIN: Warm and dry. HEAD: Normocephalic. EYES: No scleral icterus. No injection or drainage. NECK: Supple, trachea midline. No JVD or lymphadenopathy. CARDIOVASCULAR: Regular rate and rhythm without murmurs, gallops, or rubs. RESPIRATORY: Breath sounds equal bilaterally. No accessory muscle use. GASTROINTESTINAL: Abdomen soft, non-tender, nondistended. EXTREMITIES: No cyanosis, or edema. Patient has a approximately 6 cm long laceration which is clean and well approximated with sutures, no erythema or drainage. NEUROLOGICAL: Awake, alert, and oriented x 3. Non-focal. Laboratory Laboratory Tests Test 08/31/17 22:35 09/01/17 05:55 White Blood Count 6.7 6.7 Red Blood Count 4.44 4.07 Hemoglobin 13.2 12.3 Hematocrit 39.1 35.9 Mean Corpuscular Volume 87.9 88.1 Mean Corpuscular Hemoglobin 29.8 30.1 Mean Corpuscular Hemoglobin Concent 33.9 34.2 Red Cell Distribution Width 11.9 11.5 Platelet Count 198 178 Mean Platelet Volume 8.9 10.5 Neutrophils (%) (Auto) 54.4 48.8 Lymphocytes (%) (Auto) 35.0 38.2 Monocytes (%) (Auto) 7.9 9.9 Eosinophils (%) (Auto) 2.0 2.4 Basophils (%) (Auto) 0.7 0.7 Neutrophils # (Auto) 3.8 3.3 Lymphocytes # (Auto) 2.3 2.5 Monocytes # (Auto) 0.5 0.7 Eosinophils # (Auto) 0.1 0.2 Basophils # (Auto) 0.0 0.0 CBC Comment DIFF FINAL DIFF FINAL Differential Comment Prothrombin Time 10.0 Prothromb Time International Ratio 0.9 Activated Partial Thromboplast Time 26.7 Blood Urea Nitrogen 20 19 Creatinine 0.70 0.71 Random Glucose 109 117 Total Protein 7.5 Albumin 4.3 Calcium Level 9.3 9.1 Alkaline Phosphatase 64 Aspartate Amino Transf (AST/SGOT) 57 Alanine Aminotransferase (ALT/SGPT) 141 Total Bilirubin 0.5 Sodium Level 137 138 Potassium Level 3.8 3.7 Chloride Level 101 102 Carbon Dioxide Level 29.9 29.3 Anion Gap 6 7 Estimat Glomerular Filtration Rate 88 86 Result Diagram: 09/01/1755409/01/17554 Caprini VTE Risk Assessment Caprini VTE Risk Assessment: No/Low Risk (score <= 1) Caprini Risk Assessment Model Point Value = 1 Point Value = 2 Point Value = 3 Point Value = 5 Age 41-60 Minor surgery BMI > 25 kg/m2 Swollen legs Varicose veins or History of unexplained or recurrent spontaneous Oral contraceptives or hormone replacement Sepsis (< 1 month) Serious lung disease, including pneumonia (< 1 month) Abnormal pulmonary function Acute myocardial infarction Congestive heart failure (< 1 month) History of inflammatory bowel disease Medical patient at bed rest Age 61-74 Arthroscopic surgery Major open surgery (> 45 min) Laparoscopic surgery (> 45 min) Malignancy Confined to bed (> 72 hours) Immobilizing plaster cast Central venous access Age >= 75 History of VTE Family history of VTE Factor V Leiden Prothrombin [id number] Lupus anticoagulant Anticardiolipin antibodies Elevated serum homocysteine Heparin-induced thrombocytopenia Other congenital or acquired thrombophilia Stroke (< 1 month) Elective arthroplasty Hip, pelvis, or leg fracture Acute spinal cord injury (< 1 month) Prophylaxis Regimen Total Risk Factor Score Risk Level Prophylaxis Regimen 0-1 Low Early ambulation 2 Moderate Order ONE of the following: *Sequential Compression Device (SCD) *Heparin 5000 units SQ BID 3-4 Higher Order ONE of the following medications: *Heparin 5000 units SQ TID *Enoxaparin/Lovenox 40 mg SQ daily (WT < 150 kg, CrCl > 30 mL/min) *Enoxaparin/Lovenox 30 mg SQ daily (WT < 150 kg, CrCl > 10-29 mL/min) *Enoxaparin/Lovenox 30 mg SQ BID (WT < 150 kg, CrCl > 30 mL/min) AND/OR *Sequential Compression Device (SCD) 5 or more Highest Order ONE of the following medications: *Heparin 5000 units SQ TID (Preferred with Epidurals) *Enoxaparin/Lovenox 40 mg SQ daily (WT < 150 kg, CrCl > 30 mL/min) *Enoxaparin/Lovenox 30 mg SQ daily (WT < 150 kg, CrCl > 10-29 mL/min) *Enoxaparin/Lovenox 30 mg SQ BID (WT < 150 kg, CrCl > 30 mL/min) AND *Sequential Compression Device (SCD) Assessment and Plan Problem List: (1) Tendon laceration ICD Code: T14.8XXA - Other injury of unspecified body region, initial encounter Status: Acute (2) Foot drop, right ICD Code: M21.371 - Foot drop, right foot Status: Acute Assessment and Plan -Laceration of the right tibialis anterior with tendon laceration with foot drop - was unable to be addressed timely in the outpatient setting. The patient reported to the ER last night. I discussed the patient with Dr. Miguel who is on-call for orthopedic surgery. His PA will see the patient at noon today and they will come up with a definitive plan for the patient. We'll continue pain control, IV fluids. We'll start her on Ancef IV. -DVT prophylaxis. Avoid chemical prophylaxis in anticipation of surgery. Cannot do SCDs due to the injury to the right lower extremity. Charlene Rogers MD Sep 01, 2017 10:31
[2017-09-01] MEDS ORDERED: MIDAZOLAM HCL 2 MG/2 ML VIAL IV ONE (10:51)
[2017-09-01] MEDS ORDERED: MORPHINE SULFATE 4 MG/ML INJ IV ONE (10:51)
[2017-09-01] MEDS ORDERED: DEXAMETHASONE SOD PHOS 4 MG/ML VIAL IV ONE (10:51)
[2017-09-01] MEDS ORDERED: ONDANSETRON HCL 4 MG/2 ML VIAL IV PUSH ONE (10:51)
[2017-09-01] MEDS ORDERED: ESMOLOL HCL 100 MG/10 ML VIAL IV ONE (10:51)
[2017-09-01] MEDS ORDERED: LIDOCAINE HCL 1% PF 5 ML AMPULE OTHER ONE (10:51)
[2017-09-01] MEDS ORDERED: PROPOFOL 200 MG/20 ML AMP IV ONE (10:51)
[2017-09-01] MEDS: ACETAMINOPHEN/HYDROcodone 325 MG/7.5 MG TAB PO PRN (11:38)
[2017-09-01 12:00] VITALS: BP 128/78; PULSE 62; RESP 17; TEMP 97.9; O2SAT 95
--- NOTE | 2017-09-01 12:50 | PD.CONS ---
cc: London Zaragoza Jr., MD HPI Service Orthopedic Surgeons Consult Requested By Primary Care Physician No Primary Care Physician Admission Diagnosis Tendon Laceration. Diagnoses: (1) Tendon laceration (2) Foot drop, right Diagnosis: Principal Chief Complaint: right leg tendon lateration History of Present Illness 51-year-old female with no significant past medical history who was moving a glass table on August 28 when the glass fell and she suffered a laceration to her anterior distal tibia. MRI revealed more than 50% laceration of the anterior tibialis tendon. Seen and treated in ED. She was unable to follow as an outpatient. She returns to the emergency department complaining of pain with weightbearing and right foot drop, pain with dorsiflexion and inability to bear weight. Pain is 3/10, non radiating, shap/stabbing, associated with mild decreased in sensation over the dorsum of the foot, pain relieved at rest. ROS - General Review of Systems PFSH Past Family Social History Past Medical History None Past Surgical History Tubal ligation Allergy: NKDA Coded Allergies: No Known Allergies (Unverified , 08/31/17) Social History No history of alcohol tobacco or drug use Past Family Social History Past Medical History None Past Surgical History Tubal ligation Allergies: Coded Allergies: No Known Allergies (Unverified , 08/31/17) Active Ordered Medications Current Medications Medications (Trade) Dose Ordered Sig/Leah Route Start Time Stop Time Status Last Admin (NS Flush) 2 ml UNSCH PRN IV FLUSH 09/01/17 00:00 (NS Flush) 2 ml BID IV FLUSH 09/01/17 09:00 09/01/17 09:37 (Morphine Inj) 2 mg Q3H PRN IV PUSH 09/01/17 00:00 09/01/17 09:38 (Flu (Quadrivalent) Vaccine Inj) 0.5 ml ONCE ONCE IM 09/02/17 09:00 09/02/17 09:01 Cefazolin Sodium/ Dextrose 50 ml @ 100 mls/hr Q8H IV 09/01/17 09:00 09/01/17 09:37 (Tylenol) 650 mg Q6H PRN PO 09/01/17 10:00 09/01/17 09:42 ([place] 5-325 Mg) 1 tab Q4H PRN PO 09/01/17 09:30 ([place] 7.5-325 Mg) 1 tab Q4H PRN PO 09/01/17 10:00 09/01/17 11:38 (Narcan Inj) 0.4 mg UNSCH PRN IV PUSH 09/01/17 09:30 (Nan-Colace) 1 tab BID PO 09/01/17 21:00 Reported Meds & Active Scripts Active Hydrocodone-Acetaminophen 5-325 mg Tab 1 Tab PO Q6H PRN Keflex (Cephalexin) 500 Mg Cap 500 Mg PO Q8H Social History No history of alcohol tobacco or drug use Physical Exam Vital Signs Vital Signs Date Time Temp Pulse Resp B/P (MAP) Pulse Ox O2 Delivery O2 Flow Rate FiO2 09/01/17 10:47 18 09/01/17 09:58 18 09/01/17 08:00 98.1 56 18 133/65 (87) 99 09/01/17 04:00 98.4 66 18 137/72 (93) 97 09/01/17 00:00 98.6 64 16 106/79 (88) 96 08/31/17 18:47 99.1 78 16 144/69 (94) 98 Physical Exam Alert awake and oriented x 3. No acute distress. Head: NC/AT Neck: No pain with any range of motion and neck. No tenderness to palpation along posterior cervical elements. Negative [place]. Pulmonary: Normal respiratory effort. Bilateral upper extremity: no deformity. Intact sensation distally in median, ulnar, and radial nerve. Intact motor in anterior interosseous, posterior interosseous, and ulnar nerve. 2+ radial artery pulses. Good cap refill. RIGHT lower extremity: Anterior distal tibial laceration that is closed. No erythema. No drainage or signs of infection. Patient unable to dorsiflex. +EHL /EDL motor 3/5. There is a palpable gap along the anterior compartment. Sensation slightly decreased over the dorsum of the foot. Patient able to plantarflex or venice at the ankle. + PT/DP pulses. Supple compartments. Negative Homans sign. LEFT lower extremity: Neurovascularly intact, +EHL/FHL, + PT/DP pulses. Supple compartments. Negative Homans sign. Laboratory Laboratory Tests Test 08/31/17 22:35 09/01/17 05:55 White Blood Count 6.7 6.7 Red Blood Count 4.44 4.07 Hemoglobin 13.2 12.3 Hematocrit 39.1 35.9 Mean Corpuscular Volume 87.9 88.1 Mean Corpuscular Hemoglobin 29.8 30.1 Mean Corpuscular Hemoglobin Concent 33.9 34.2 Red Cell Distribution Width 11.9 11.5 Platelet Count 198 178 Mean Platelet Volume 8.9 10.5 Neutrophils (%) (Auto) 54.4 48.8 Lymphocytes (%) (Auto) 35.0 38.2 Monocytes (%) (Auto) 7.9 9.9 Eosinophils (%) (Auto) 2.0 2.4 Basophils (%) (Auto) 0.7 0.7 Neutrophils # (Auto) 3.8 3.3 Lymphocytes # (Auto) 2.3 2.5 Monocytes # (Auto) 0.5 0.7 Eosinophils # (Auto) 0.1 0.2 Basophils # (Auto) 0.0 0.0 CBC Comment DIFF FINAL DIFF FINAL Differential Comment Prothrombin Time 10.0 Prothromb Time International Ratio 0.9 Activated Partial Thromboplast Time 26.7 Blood Urea Nitrogen 20 19 Creatinine 0.70 0.71 Random Glucose 109 117 Total Protein 7.5 Albumin 4.3 Calcium Level 9.3 9.1 Alkaline Phosphatase 64 Aspartate Amino Transf (AST/SGOT) 57 Alanine Aminotransferase (ALT/SGPT) 141 Total Bilirubin 0.5 Sodium Level 137 138 Potassium Level 3.8 3.7 Chloride Level 101 102 Carbon Dioxide Level 29.9 29.3 Anion Gap 6 7 Estimat Glomerular Filtration Rate 88 86 Result Diagram: 09/01/17 0555 09/01/1755 Imaging MRI of the right leg reveal laceration of the anterior tibialis tendon with retraction. Assessment & Plan Assessment and Plan 51yo female no complicated PHMx, sustained a laceration to her anterior tibialis tendon proximal to the ankle after a glass table fell on her right leg last week. She has a foot drop and weak ankle dorsiflexion with mild decreased in deep perineal n sensation. EHL,EDL seem intact. MRI reveal AT laceration more than 50%. I recommend wound exploration with repair of the AT tendon. -NPO -OR likely this evening. London Zaragoza Jr., MD Sep 01, 2017 12:50
[2017-09-01] MEDS ORDERED: FAMOTIDINE 20 MG/2 ML VIAL ONE (17:29)
[2017-09-01] MEDS ORDERED: ACETAMINOPHEN 1000 MG/100 ML 100 ML IV ONE (17:30)
[2017-09-01] MEDS ORDERED: INSULIN HUMAN REGULAR 1,000 UNITS/10 ML VIAL SQ PRN (17:45)
[2017-09-01] MEDS ORDERED: METOPROLOL TARTRATE 25 MG TAB PO PRN (17:45)
[2017-09-01] MEDS ORDERED: SODIUM CHLORID 0.9% 500 ML IV PRN (17:45)
[2017-09-01] MEDS ORDERED: CHLORHEXIDINE GLUCONATE 2 % 1 PACK (2 CLOTHS) TOPICAL PRN (17:45)
[2017-09-01] MEDS ORDERED: LACTATED RINGER'S 1000 ML IV PRN (17:45)
[2017-09-01] MEDS ORDERED: POVIDONE IODINE 5% (ANTISEPSIS KIT) 4 APPLICATIONS EACH NARE PRN (17:45)
[2017-09-01] MEDS ORDERED: VANCOMYCIN HCL 1000 MG VIAL ONE (17:58)
[2017-09-01] MEDS ORDERED: ceFAZolin INJ 1,000 MG VIAL ONE (17:58)
[2017-09-01] MEDS ORDERED: GENTAMICIN SULFATE 80 MG/2 ML VIAL ONE (17:59)
[2017-09-01] MEDS ORDERED: ceFAZolin INJ 1,000 MG VIAL IV ONE (18:19)
[2017-09-01] MEDS ORDERED: ceFAZolin 1,000 MG/NS 100 ML IV ONE ×2 (19:00)
--- NOTE | 2017-09-01 19:46 | PD.OP ---
cc: London Zaragoza Jr., MD Operative Report Date of Surgery: Sep 01, 2017 Preoperative Diagnosis: Right leg tibialis anterior laceration Postoperative Diagnosis: same Procedure: Right tibialis anterior primary repair Anesthesia: general Surgeon: London Zaragoza Multifocal Button Inspector(s): Staff Resident Surgeon: none Operation and Findings: INDICATION FOR PROCEDURE: This a healthy female who presented with anterior tibialis tendon laceration after an incident with a glass table last week. on exam, she has severely weakened ankle dorsiflexion. MRI confirms injury to the tendon. She presented to emergency department again, 1 week after the accident. This injury requires primary repair. I discussed with the patient at length the potential for substantial perioperative risks involving wound healing complications, infection, primarily as well as perioperative complications from anesthesia, blood loss, need for transfusion, infection, neurovascular injury, DVT and PE. The patient expressed verbal understanding and agreed with my recommendations. DESCRIPTION OF PROCEDURE: The operative site was marked and the planned procedure confirmed with the patient awake prior to administration of anesthesia. The RIGHT lower extremity was prepped with Cloraprep and draped in the usual sterile manner. Again, before making the incision, a timeout was done to verify the patient's name, side, consent and the procedure with all members of the surgical team. With patient supine and his right knee flexed on a triangle. The Procedure started with exploration of the previous traumatic anterior tibia wound by extending it proximally and distally. Subcutaneous dissection carried down to the level of the fascia. There, I found an almost complete traverse laceration of the tibialis anterior tendon at the musculotendinous junction. There did not appear to be any injury to the anterior neurovascular bundle. The tendon ends were cleaned and debrided with a rongeur up to healthy looking tissues. Using #2 fiberwire we ran a locking [place] type of suture through the tendon. The repair remained intact after the ankle was placed through slow passive range of motion. The subcutaneous were closed in layers with 3-0 Vicryl. The skin was closed with Nylon. Sterile dressing was applied. right leg was splinted in slight dorsiflexion of the ankle. The patient's compartments were soft. The patient left the operating room with good pulses in the foot and stable vital signs. There were no complications. Patient transferred to PACU. London Zaragoza Jr., MD Sep 01, 2017 19:46
[2017-09-01] MEDS ORDERED: SENNOSIDES 8.6 MG TAB PO PRN (20:00)
[2017-09-01] MEDS ORDERED: BISACODYL 10 MG SUPP RECTAL PRN (20:00)
[2017-09-01] MEDS ORDERED: Post-op Orders (for Pharmacy) MISC XX ONE (20:00)
[2017-09-01] MEDS ORDERED: MAGNESIUM HYDROXIDE SUSP 30 ML CUP PO PRN (20:00)
[2017-09-01] MEDS ORDERED: ZOLPIDEM TARTRATE 5 MG TAB PO PRN (20:00)
[2017-09-01] MEDS ORDERED: LACTULOSE SYRUP 20 GM/30 ML CUP PO PRN (20:00)
[2017-09-01] MEDS ORDERED: SODIUM CHLORIDE 0.9% FLUSH 10 ML FLUSH IV FLUSH PRN ×2 (20:00)
[2017-09-01] MEDS ORDERED: PROMETHAZINE HCL 25 MG TAB PO PRN (20:00)
[2017-09-01] MEDS ORDERED: oxyCODONE/ACETAMINOPHEN 5 MG/325 MG TAB PO PRN (20:00)
[2017-09-01] MEDS ORDERED: *HYDROmorphone PF 1 MG VIAL PERIprocedural Use ONLY ONE (20:15)
[2017-09-01 21:00] VITALS: BP 149/95; PULSE 69; RESP 17; TEMP 96.9; O2SAT 99
[2017-09-01] MEDS: DOCUSATE SODIUM 50 MG/SENNA 8.6 MG TAB PO SCH ×2 (21:00)
[2017-09-01] MEDS ORDERED: DO NOT ADM ANY ANTICOAGULANT DRUGS PRN (21:00)
[2017-09-01] MEDS ORDERED: SODIUM CHLORIDE 0.9% FLUSH 10 ML FLUSH IV FLUSH SCH (21:00)
[2017-09-01 21:55] VITALS: O2SAT 96
[2017-09-01] MEDS: MORPHINE SULFATE 8 MG/ML INJ IV PUSH PRN (23:43)
[2017-09-01] MEDS: KETOROLAC TROMETHAMINE 30 MG/ML (IVP) VIAL IVP SCH (23:44)
[2017-09-01] MEDS: VANCOMYCIN INJ 1,000 MG in SODIUM CHLOR 0.9% 250 ML INJ 250 ML IV SCH (23:58)
[2017-09-02 01:00] VITALS: BP 136/54; PULSE 80; RESP 17; TEMP 97.5; O2SAT 95
[2017-09-02] MEDS: ACETAMINOPHEN/HYDROcodone 325 MG/7.5 MG TAB PO PRN ×2 (01:09→07:40)
[2017-09-02] MEDS: MORPHINE SULFATE 8 MG/ML INJ IV PUSH PRN ×2 (02:58→06:02)
[2017-09-02] MEDS: KETOROLAC TROMETHAMINE 30 MG/ML (IVP) VIAL IVP SCH ×3 (02:59→15:54)
[2017-09-02 04:55] VITALS: BP 166/66; PULSE 71; RESP 18; TEMP 97.8; O2SAT 97
[2017-09-02 08:00] VITALS: BP 148/74; PULSE 79; RESP 19; TEMP 96.5; O2SAT 98
[2017-09-02] MEDS ORDERED: ENOXAPARIN SODIUM 30 MG/0.3 ML SYRINGE SQ SCH (08:00)
[2017-09-02] MEDS ORDERED: INFLUENZA VIRUS VACCINE (QUADRIVALENT) 0.5 ML SYR IM ONE (09:00)
[2017-09-02] MEDS: DOCUSATE SODIUM 50 MG/SENNA 8.6 MG TAB PO SCH ×2 (09:00→09:55)
[2017-09-02] MEDS: SODIUM CHLORIDE 0.9% FLUSH 10 ML FLUSH IV FLUSH SCH (09:54)
[2017-09-02] MEDS: VANCOMYCIN INJ 1,000 MG in SODIUM CHLOR 0.9% 250 ML INJ 250 ML IV SCH (10:00)
[2017-09-02] MEDS ORDERED: LORazepam 1 MG TAB PO ONE (10:30)
[2017-09-02] MEDS: oxyCODONE/ACETAMINOPHEN 5 MG/325 MG TAB PO PRN ×3 (11:06→19:19)
[2017-09-02 11:41] VITALS: BP 131/71; PULSE 65; RESP 19; TEMP 96.6; O2SAT 99
[2017-09-02 13:13] VITALS: O2SAT 98
[2017-09-02 16:00] VITALS: BP 140/73; PULSE 76; RESP 19; TEMP 97.8; O2SAT 99
--- NOTE | 2017-09-02 17:11 | HHI.PR ---
Subjective Remarks Nursing reports no acute setback since last night, patient is complaining of pain, is very worried. Patient is complaining of spasms in her right leg which she says she can't do anything about because it's in a postop dressing. Objective Vital Signs Date Time Temp Pulse Resp B/P (MAP) Pulse Ox O2 Delivery O2 Flow Rate FiO2 09/02/17 16:00 97.8 76 19 140/73 (95) 99 09/02/17 13:13 98 09/02/17 11:41 96.6 65 19 131/71 (91) 99 09/02/17 08:00 96.5 79 19 148/74 (98) 98 09/02/17 06:07 18 09/02/17 04:55 97.8 71 18 166/66 (99) 97 09/02/17 01:00 97.5 80 17 136/54 (81) 95 09/01/17 21:55 96 Nasal Cannula 2.00 09/01/17 21:00 96.9 69 17 149/95 (113) 99 09/01/17 20:50 71 14 175/77 (109) 96 Nasal Cannula 2 09/01/17 20:30 76 14 162/84 (110) 96 Nasal Cannula 2 09/01/17 20:15 87 14 171/92 (118) 97 Nasal Cannula 2 09/01/17 20:08 97.7 87 14 176/79 (111) 97 Nasal Cannula 2 I/O 09/01/17 09/01/17 09/01/17 09/02/17 09/02/17 09/02/17 07:00 15:00 23:00 07:00 15:00 23:00 Intake Total 0 ml 1240 ml 830 ml 700 ml Output Total 175 ml Balance 0 ml 1065 ml 830 ml 700 ml Intake Oral 0 ml 240 ml 480 ml 700 ml IV Total 350 ml Other 1000 ml Output Urine Total 150 ml Estimated Blood Loss 25 ml # Voids 1 3 3 # Bowel Movements 0 0 Result Diagram: 09/01/17 0555 09/01/17 0555 Imaging Last Impressions Lower Extremity MRI 08/31/17 0000 Signed Impressions: Service Date/Time: Thursday, August 31, 2017 23:14 - CONCLUSION: 1. Soft tissue laceration anteriorly in the mid to distal leg as described above. 2. Associated 58 mm long myofascial defect of tibialis anterior and an approximately 50%% partial-thickness tendon tear at the level of the distal myotendinous junction with 23 mm of separation of the torn fibers. 3. No acute abnormality seen of the right tibia or fibula. Lincoln Mckenzie MD Chest X-Ray 08/31/17 0000 Signed Impressions: Service Date/Time: Thursday, August 31, 2017 20:49 - CONCLUSION: No acute abnormality is seen. There is focal density in the left upper chest likely related to the first left rib on end. A nodule cannot be excluded. This area could be further evaluated with a CT examination of the chest at some point. Lincoln Curran MD Objective Remarks Mild to moderate distress secondary to pain Right lower leg and postop dressing, toes are normal color with grossly intact motor function A/P Assessment and Plan Right anterior tibialis laceration - post op day 1 Right tibialis anterior primary repair. We will attempt to transition from IV pain medication to orals. Monitor resp status nonetheless. Anxiety - one-time dose of Ativan Anticoagulation - Lovenox We'll await orthopedic input for clearance for discharge when appropriate. Ari Rosado MD Sep 02, 2017 17:11
[2017-09-02] MEDS ORDERED: PERC10TA27 PO (17:22)
--- NOTE | 2017-09-02 17:28 | HHI.DCPOC ---
Discharge Care Plan Diagnosis: (1) Tendon laceration (2) Foot drop, right Goals to Promote Your Health * To prevent worsening of your condition and complications * To maintain your health at the optimal level Directions to Meet Your Goals Take your medications as prescribed Follow your dietary instruction Follow activity as directed Keep your appointments as scheduled Take your immunizations and boosters as scheduled If your symptoms worsen call your PCP, if no PCP go to Urgent Care Center or Emergency Room Smoking is Dangerous to Your Health. Avoid second hand smoke Call the 24-hour hour crisis hotline for domestic abuse at Ari Rosado MD Sep 02, 2017 17:28
--- NOTE | 2017-09-02 17:32 | PD.ORT.PN ---
Subjective Subjective Remarks pain controlled. no issues Objective Vitals Vital Signs Date Time Temp Pulse Resp B/P (MAP) Pulse Ox O2 Delivery O2 Flow Rate FiO2 09/02/17 16:00 97.8 76 19 140/73 (95) 99 09/02/17 13:13 98 09/02/17 11:41 96.6 65 19 131/71 (91) 99 09/02/17 08:00 96.5 79 19 148/74 (98) 98 09/02/17 06:07 18 09/02/17 04:55 97.8 71 18 166/66 (99) 97 09/02/17 01:00 97.5 80 17 136/54 (81) 95 09/01/17 21:55 96 Nasal Cannula 2.00 09/01/17 21:00 96.9 69 17 149/95 (113) 99 09/01/17 20:50 71 14 175/77 (109) 96 Nasal Cannula 2 09/01/17 20:30 76 14 162/84 (110) 96 Nasal Cannula 2 09/01/17 20:15 87 14 171/92 (118) 97 Nasal Cannula 2 09/01/17 20:08 97.7 87 14 176/79 (111) 97 Nasal Cannula 2 I/O 09/01/17 09/01/17 09/01/17 09/02/17 09/02/17 09/02/17 07:00 15:00 23:00 07:00 15:00 23:00 Intake Total 0 ml 1240 ml 830 ml 700 ml Output Total 175 ml Balance 0 ml 1065 ml 830 ml 700 ml Intake Oral 0 ml 240 ml 480 ml 700 ml IV Total 350 ml Other 1000 ml Output Urine Total 150 ml Estimated Blood Loss 25 ml # Voids 1 3 3 # Bowel Movements 0 0 Result Diagram: 09/01/17 0555 09/01/17 0555 Objective Remarks Alert, awake and oriented x 3. No acute distress. Pulmonary: Normal respiratory effort Right lower extremity: Neurovascularly intact, splint in place, dressing clean, dry and intact. Supple compartments. Negative Homans sign. Left lower extremity: neurovascularly intact Assessment & Plan Assessment and Plan POD #1- Right anterior tibialis tendon primary repair Doing well Antibiotics: Ancef DVT prophylaxis, Lovenox. none at dc Weightbearing status: NWB RLE Dressing change: place short leg cast Dispo: Stable and okay to discharge from orthopedic standpoint. Follow-up: 2 weeks, Dr. Zaragoza, [facility] Thank you for the consult and allowing us to take part in this patient's medical care. London Zaragoza Jr., MD Sep 02, 2017 17:32
[2017-09-03] MEDS ORDERED: INFLUENZA VIRUS VACCINE (QUADRIVALENT) 0.5 ML SYR IM ONE (10:00)
== END 2017-09-02 20:05 | disposition home or self-care (01) | DRG 502 ==
LOC: PHED 18:37 → PHEDA 09-01 → OBSVTOIN 09-01 → PH5A 09-01 01:39 → HSDI 09-01 17:10 → N06B 09-01 20:59
PROVIDERS: ADMIT Hospitalist; ATTEND Hospitalist
PROC: 0LQN0ZZ Repair Right Lower Leg Tendon, Open Approach (ICD-10-PCS; principal; 2017-09-01 17:48)
DX: S86.221A Laceration of muscle(s) and tendon(s) of anterior muscle group at lower leg level, right leg, initial encounter (principal); I10 Essential (primary) hypertension; M21.371 Foot drop, right foot; W01.110A Fall on same level from slipping, tripping and stumbling with subsequent striking against sharp glass, initial encounter; Y92.9 Unspecified place or not applicable; F41.9 Anxiety disorder, unspecified
CPT/HCPCS: 71020; 73718; 80048; 80053; 84703; 85025; 85610; 85730; 86850; 86900; 86901; 93005; 94150; 99285; J0131; J0690; J1100; J1170; J1580; J1650; J1885; J2250; J2270; J2405; J3010; J3370; J7050

== ENCOUNTER → 2017-09-29 | Outpatient (CLI) | payer SELFPAY ==
[~2017-09-29] MED LIST changes: +PERC10TA27 PO
== END ==
LOC: HORT 14:59
PROVIDERS: ATTEND Orthopaedic Surgery
DX: Z47.89 Encounter for other orthopedic aftercare (principal)
CPT/HCPCS: L2114